=== PATIENT | male | born 2000 | race African-American/Black ===

== ENCOUNTER 2021-09-13 09:17 | Emergency (ER) | payer OTHER ==
[~2021-09-13] VITALS: Ht 180.3 cm; Wt 101.6 kg
[2021-09-13 10:57] LABS: RSV AMPLIFICATION NEGATIVE (NEGATIVE)
[2021-09-13] MEDS ORDERED: ACETAMINOPHEN TAB 650MG DOSE (2X325MG) PO ONE (11:40)
--- NOTE | 2021-09-13 11:49 | REP ---
INDICATION: sob, + covid. COMPARISON: None. TECHNIQUE: Portable FINDINGS: The technique utilized in obtaining the radiograph has magnified the cardiac silhouette and accentuated the interstitial markings. The superior mediastinal structures are midline. The cardiac silhouette is unremarkable in size, shape, and position. The diaphragmatic surfaces of the lungs are regular, and the costophrenic angles are clear. The pulmonary abbasi are clear. The imaged osseous structures are intact. IMPRESSION: There is no acute cardiopulmonary disease. <Electronically signed by Odell Nance > 09/13/21 2044
[2021-09-13 12:01] VITALS: O2SAT 96
[2021-09-13 12:44] VITALS: BP 131/59
== END 2021-09-13 13:54 | disposition home or self-care (01) ==
LOC: M ED 09:17
DX: U07.1 COVID-19 (principal)